=== PATIENT | male | born 1990 | race Two or more races ===

== ENCOUNTER 2017-05-29 13:53 | Emergency (ER) | payer SELFPAY ==
[~2017-05-29] VITALS: Ht 170.2 cm; Wt 65.8 kg
[2017-05-29 13:54] VITALS: BP 150/69
--- NOTE | 2017-05-29 14:59 | Emergency Room Report ---
History of Present Illness General Chief Complaint: Behavioral Complaint Source: Patient Present Illness HPI 26-year-old male patient presents to ER brought in by ambulance and police status post being found in the street laying down. Patient reports he was doing whippets earlier today because he had a headache. Patient denies acute complaints in the ER currently. Patient denies chest pain, shortness of breath , abdominal pain. Patient denies thoughts of suicide or homicidal ideation. patient denies use of other drugs or alcohol. Patient denies smoking. Patient denies history of asthma or cardiovascular disease. patient complains of abrasion on right elbow where it hit the ground. Patient denies elbow pain with ROM. Patient denies loss of range of motion.. Allergies: Coded Allergies: No Known Allergies (Unverified , 05/29/17) Patient History Past Medical History: see triage record Reviewed Nursing Documentation: PMH: Agreed; PSxH: Agreed Nursing Documentation-PMH Past Medical History: No Stated History Review of Systems All Other Systems: negative except mentioned in HPI Physical Exam Vital Signs Date Time Temp Pulse Resp B/P (MAP) Pulse Ox O2 Delivery O2 Flow Rate FiO2 05/29/17 13:47 72 18 150/69 100 Room Air Sp02 EP Interpretation: reviewed, normal General Appearance: well appearing, no apparent distress, alert, GCS 15, non- toxic Head: normocephalic, atraumatic Eyes: bilateral eye normal inspection, bilateral eye PERRL ENT: hearing grossly normal, normal pharynx, no angioedema, normal voice, uvula midline, moist mucus membranes Neck: full range of motion Respiratory: lungs clear, normal breath sounds, no rhonchi, no respiratory distress, no accessory muscle use, no wheezing, speaking full sentences Cardiovascular #1: regular rate, rhythm, no edema Musculoskeletal: back normal, digits/nails normal, gait/station normal, normal range of motion, non-tender, other - NVI, no wrist drop, no TTP Neurologic: alert, oriented x3, responsive, social media senior associate III-XII nml as tested, motor strength/tone normal, sensory intact, cerebellar normal, normal gait, speech normal Psychiatric: mood/affect normal Skin: abrasions - right elbow, dried blod, no active bleeding Medical Decision Making PA Attestation Dr. Beasley is my supervising Physician whom patient management has been discussed with. Diagnostic Impression: Primary Impression: Drug abuse Additional Impression: Abrasion ER Course Pt. presents to the ED BIB ambulance c/o drug use and erratic behavior. Ddx considered but are not limited to drug use, alcohol use, psychosis. Vital signs: are WNL, pt. is afebrile ER COURSE: Physical exam benign, cranial nerves intact as tested, lungs clear to auscultation. Patient denies acute complaints in ER. Will allow patient to rest and monitor him. Patient does not need workup at this time. Do not believe patient is a danger to himself or others. No laceration, no active drainage, no loss of range of motion. Denies pain with ROM. Patient does not need imaging of arm at this time, low suspicion for fracture. Abrasion on right elbow cleaned with copious amount of water, bacitracin applied , wound dressed with sterile. Patient reports he can go stay with his grandmother but has no way of contacting her. Patient reports he'll take bus to see her. Do not use drugs. Patient provided with information regarding shelters to stay in unable to stay at [facility]'s house. Patient provided with bus token. Patient observed drinking Juice ER. Patient provided with sandwich prior to discharge. Patient ambulatory without difficulty, nontoxic-appearing, okay for discharge. Discharge: At this time pt is stable for d/c to home. Patient is resting comfortably, in no acute distress, nontoxic appearing, talking without difficulty. Patient to take medications as instructed Will provide with patient care instructions and any necessary prescriptions. Care plan and follow-up instructions provided. Patient instructed to follow-up with primary care provider in 3 - 5 days. Patient questions asked and answered. Patient reports understanding and agreement to treatment plan. ER precautions given. Patient instructed to return to ER immediately for any new or worsening of symptoms including but not limited to increasing SOB, persistent fever. Last Vital Signs Date Time Temp Pulse Resp B/P (MAP) Pulse Ox O2 Delivery O2 Flow Rate FiO2 05/29/17 13:54 72 18 150/69 100 Room Air Disposition: HOME, SELF-CARE Condition: Stable Patient Instructions: Abrasion, [id number], Drug Overdose, Drug Toxicity Additional Instructions: Followup with primary care provider in 3 -5 days. Take medications as directed. Patient questions asked and answered. ER precautions given, patient instructed to return to ER immediately for any new or worsening of symptoms. Do not use drugs. Do not smoke. [place] May 29, 2017 14:59
[2017-05-29] MEDS ORDERED: Bacitracin Oint UD TOPIC ONE (15:45)
[2017-05-29 15:48] VITALS: BP 145/65
== END 2017-05-29 15:51 | disposition home or self-care (01) ==
LOC: EDBD 13:53 → EMR 14:30
DX: F19.10 Other psychoactive substance abuse, uncomplicated (principal); S50.311A Abrasion of right elbow, initial encounter; W18.30XA Fall on same level, unspecified, initial encounter; Y92.410 Unspecified street and highway as the place of occurrence of the external cause; R51 Headache
CPT/HCPCS: 99283